=== PATIENT | female | born 1935 ===

== ENCOUNTER 2018-06-08 09:12 | Emergency (ER) | payer OTHER ==
[~2018-06-08] VITALS: Ht 170.2 cm; Wt 60.8 kg
[2018-06-08] MEDS ORDERED: TOPROL XL100 M1 (09:23)
[2018-06-08] MEDS ORDERED: SYNTHROID88 MCG PO (09:24)
[2018-06-08] MEDS ORDERED: TOPROL XL25 M1 (09:26)
[2018-06-08] MEDS ORDERED: LEVAQUIN750 MG PO (15:24)
== END 2018-06-08 16:44 | disposition home or self-care (01) ==
LOC: ER 09:12
DX: R50.9 Fever, unspecified (principal)